=== PATIENT | female | born 1990 | race Caucasian/White ===

== ENCOUNTER 2019-09-14 11:32 | Outpatient (CLI) | payer OTHER | END 2019-09-14 11:37 | disposition home or self-care (01) | LOC: LAB 11:32 | DX: Z34.80 Encounter for supervision of other normal pregnancy, unspecified trimester (principal) ==

== ENCOUNTER 2019-09-21 14:00 | Inpatient (IN) | payer OTHER ==
[~2019-09-21] VITALS: Ht 157.5 cm; Wt 88.0 kg
[2019-09-30] MEDS ORDERED: OBSTETRIX DHA1 EACH PO (06:07)
== END 2019-10-02 10:54 | disposition home or self-care (01) | DRG 807 ==
LOC: LDR 09-30 05:24 → OB/GYN 09-30 10:43
PROVIDERS: ADMIT Specialist
PROC: 10E0XZZ Delivery of Products of Conception, External Approach (ICD-10-PCS; principal; 2019-09-30)
PROC: 0UQMXZZ Repair Vulva, External Approach (ICD-10-PCS; 2019-09-30)
PROC: 10907ZC Drainage of Amniotic Fluid, Therapeutic from Products of Conception, Via Natural or Artificial Opening (ICD-10-PCS; 2019-09-30)
PROC: 3E033VJ Introduction of Other Hormone into Peripheral Vein, Percutaneous Approach (ICD-10-PCS; 2019-09-30)
PROC: 4A1HXCZ Monitoring of Products of Conception, Cardiac Rate, External Approach (ICD-10-PCS; 2019-09-30)
DX: O71.82 Other specified trauma to perineum and vulva (principal); Z37.0 Single live birth; Z3A.38 38 weeks gestation of pregnancy